=== PATIENT | female | born 1965 | race Caucasian/White ===

== ENCOUNTER 2017-07-10 14:38 | Emergency (ER) | payer OTHER ==
[~2017-07-10] VITALS: Ht 167.6 cm; Wt 120.0 kg
[2017-07-10] MEDS ORDERED: SODIUM CHLORIDE FLUSH 10ML SYR IVF ONE ×2 (15:00→16:30)
[2017-07-10] MEDS ORDERED: SODIUM CHLORIDE 0.9% 1,000ML IVBOLUS ONE (15:00)
[2017-07-10 15:52] LABS: BASOPHILS # (AUTO) 0.11 x10^3/uL (0-0.1); BASOPHILS % (AUTO) 2 % (0-1); EOSINOPHILS # (AUTO) 0.12 x10^3/uL (0-0.4); EOSINOPHILS % (AUTO) 2 % (1-7); LYMPHOCYTES # (AUTO) 2.21 x10^3/uL (1-3.4); LYMPHOCYTES % (AUTO) 34 % (22-44); MD NO; MEAN CORPUSCULAR HEMOGLOBIN 29.6 pg (27.0-34.8); MEAN CORPUSCULAR HGB CONC 34.1 g/dL (32.4-35.8); MEAN CORPUSCULAR VOLUME 86.8 fL (80-100); MEAN PLATELET VOLUME 8.9 fL (7.4-10.4); MONOCYTES # (AUTO) 0.53 x10^3/uL (0.2-0.8); MONOCYTES % (AUTO) 8 % (2-9); NEUTROPHILS # (AUTO) 3.46 x10^3/uL (1.8-6.8); NEUTROPHILS % (AUTO) 54 % (42-75); PLATELET COUNT 226 x10^3/uL (130-400); RED BLOOD COUNT 4.54 x10^6/uL (3.82-5.3); RED CELL DISTRIBUTION WIDTH 12.5 % (9.6-15.2)
[2017-07-10 15:58] LABS: ALBUMIN 3.8 g/dL (3.4-5.0); ANION GAP 7 mmol/L (5-15); CALCIUM 8.7 mg/dL (8.5-10.1); CHLORIDE 109 mmol/L (98-107); CREATININE 0.88 mg/dL (0.55-1.02)
[2017-07-10] MEDS ORDERED: KETOROLAC 30 MG/1 ML ONE (16:12)
[2017-07-10] MEDS ORDERED: METOCLOPRAMIDE 5 MG/ML, 2ML ONE (16:13)
[2017-07-10] MEDS ORDERED: DIPHENHYDRAMINE 50 MG/ML, 1ML ONE (16:13)
[2017-07-10] MEDS ORDERED: DIPHENHYDRAMINE 50 MG/ML, 1ML IVPush ONE (16:30)
[2017-07-10] MEDS ORDERED: METOCLOPRAMIDE 5 MG/ML, 2ML IVPush ONE (16:30)
[2017-07-10] MEDS ORDERED: KETOROLAC 30 MG/1 ML IVPush ONE (16:30)
[2017-07-10 16:42] LABS: MICROSCOPIC NOT IND
[2017-07-10 16:46] LABS: CULTURE INDICATED? NO
[2017-07-10 17:22] VITALS: BP 132/80
== END 2017-07-10 17:32 | disposition home or self-care (01) ==
LOC: ED 17:25
DX: G44.219 Episodic tension-type headache, not intractable (principal); I10 Essential (primary) hypertension
CPT/HCPCS: 36415; 70450; 80048; 81003; 82040; 85025; 96361; 96374; 96375; 99285; J1200; J1885; J2765; J7030